=== PATIENT | female | born 2000 | race Caucasian/White ===

== ENCOUNTER → 2021-02-16 10:35 | Outpatient (BNVA) | payer OTHER, SELFPAY | PROVIDERS: Visit Provider Nurse Practitioner Family | DX: R53.83 Other fatigue (principal); R22.0 Localized swelling, mass and lump, head; R22.1 Localized swelling, mass and lump, neck | CPT/HCPCS: 80053; 84443; 85025 ==

== ENCOUNTER 2024-07-16 08:52 | Outpatient (CLI) | payer OTHER, SELFPAY ==
--- NOTE | 2024-07-16 08:30 | US_ITS ---
WS: [id number] US pelvic complete* 99421 HISTORY: N94.6 - Dysmenorrhea, unspecified COMPARISON: None available. Uterus: 7.7 cm x 4.1 cm x 4.4 cm. Normal size anteverted uterus. No fibroid or mass. Endometrium: 0.5 cm. Normal. Right ovary: 5.5 cm x 3.0 cm x 4.1 cm. Ovary is slightly enlarged. There are several small follicles. There is several scattered areas of increased echogenicity which are probably hemorrhagic corpus lut eal cyst. Normal vascularity. Left ovary: 2.6 cm x 1.7 cm x 2.8 cm. Ovaries measuring top normal size. There are several small vanessa pheral follicles. Moderate amount of free fluid in the cul-de-sac. Fluid is complex and heterogeneous. US/US pelvic complete* [id number] IMPRESSION: 1. Normal endometrium. 2. RIGHT ovary is enlarged with numerous small follicles. LEFT ovary is normal size with additional peripheral follicles. Correlate for possible polycystic o varian syndrome. Number of follicles is increased. 3. Moderate amount of complex free fluid in the cul-de-sac. May be from a hemo rrhagic cyst rupture or infection.
== END 2024-07-16 08:53 | disposition home or self-care (01) ==
LOC: RAD 08:54
PROVIDERS: PCP Family Medicine; Visit Provider Family Medicine
DX: N83.01 Follicular cyst of right ovary (principal); N94.6 Dysmenorrhea, unspecified
CPT/HCPCS: 76856

== ENCOUNTER → 2024-07-26 10:26 | Outpatient (BNVA) | payer OTHER, SELFPAY | PROVIDERS: PCP Family Medicine; Visit Provider Nurse Practitioner Women's Health | DX: Z01.419 Encounter for gynecological examination (general) (routine) without abnormal findings | CPT/HCPCS: 80053; 82306; 83036; 84443; 85025; 87624 ==

== ENCOUNTER → 2025-03-17 10:07 | Outpatient (BNVA) | payer OTHER, SELFPAY | PROVIDERS: PCP Family Medicine; Visit Provider Psychiatry & Neurology Psychiatry | DX: Z79.899 Other long term (current) drug therapy (principal); F43.12 Post-traumatic stress disorder, chronic | CPT/HCPCS: 80053; 80061; 83036; 84443; 85025 ==